=== PATIENT | male | born 1990 | race Caucasian/White ===

== ENCOUNTER 2024-03-26 21:30 | Observation (INO) | payer OTHER ==
[~2024-03-26] VITALS: Ht 170.2 cm; Wt 79.5 kg
[2024-03-27] VITALS (10 sets, daily range): BP systolic 122–158; BP diastolic 79–91; PULSE 52–96; TEMP 97.7–98.1
--- NOTE | 2024-03-27 04:01 | NUR ---
An Electronic Health Record (EHR) downtime event occurred during this patients care. For legal medical record information generated during the downtime period, please reference the patient's legal medical record. Paper or scanned documentation has been incorporated into the legal medical record which is maintained in accordance with Health Information Management (HIM) and record retention policies.
[2024-03-27] MEDS ORDERED: Albuterol/Ipratropium 3 MG-0.5 MG/3 ML Neb Soln IH PRN (04:45)
[2024-03-27] MEDS ORDERED: Polyethylene Glycol 3350 17 GM PDS PO PRN (04:45)
[2024-03-27] MEDS ORDERED: Mag/Al Hydrox/Simeth Susp 30 ML CUP PO PRN (04:45)
[2024-03-27] MEDS ORDERED: Acetaminophen 325 MG TAB PO PRN (04:45)
[2024-03-27] MEDS ORDERED: Docusate Sodium 100 MG CAP PO PRN (04:45)
[2024-03-27] MEDS ORDERED: Ondansetron 4 MG/2 ML VIAL IV PRN (04:45)
[2024-03-27] MEDS ORDERED: NS 1,000 ML IV SCH (05:00)
[2024-03-27] MEDS ORDERED: Lidocaine 4% Topical Patch TP SCH (09:00)
[2024-03-27] MEDS ORDERED: Doxycycline Monohydrate 100 MG CAP PO SCH (09:00)
[2024-03-27] MEDS ORDERED: NEXIUM 40MG40 MG PO (09:45)
[2024-03-27] MEDS ORDERED: ATARAX 25MG25 MG/TAB PO (09:46)
[2024-03-27] MEDS ORDERED: TYLENOL 325MG325 MG PO (09:47)
[2024-03-27] MEDS ORDERED: LIDODERM 5% PATC1 EA TP (09:48)
[2024-03-27] MEDS ORDERED: SYNTHROID0.05 MG/TA PO (09:48)
[2024-03-27] MEDS ORDERED: DOXYCYCLINE HY100 MG PO (09:50)
--- NOTE | 2024-03-27 09:50 | NUR ---
patient alert and oriented x4. patient reports pain to middle of chest rating it at a 6.5/10 worsening when patient takes deep breaths. patient currently NPO, fluids running per dec. patient had an episode this morning of heart rate at mid 40's while resting in bed.telemetry in place, iv fluids running per dec. patient shift assessment completed. call light within reach. bed at lowest position.
--- NOTE | 2024-03-27 11:32 | NUR ---
D: Community Development Worker stopped by room on rounds. A: Pt was resting and content. Pt has no needs right now. Pt appreciated the visit. P: Community Development Worker informed pt that if he needed anything from the candle cutter area to let his nurse know. Community Development Worker will follow up as needed.
[2024-03-27] MEDS ORDERED: Magnesium Sulfate 2 GM/50 ML IV SOLN IV ONE (12:00)
[2024-03-27] MEDS ORDERED: Regadenoson 0.08 MG/ML 5 ML SYRINGE IV SCH (13:52)
--- NOTE | 2024-03-27 14:30 | NUR ---
[facility] resting and reports pain at a 3/10 when taking deep breaths. call light within reach. bed at lowest position.
--- NOTE | 2024-03-27 16:04 | NUR ---
court worker met with patient to discuss discharge planning. Best contact is Hossein, friend, P# [phone], next of kin would be patient's , Rosalba Lozano, P# [phone], lives in [place]. PCP is at [facility], Pharmacy is [facility]. Insurance is [employer]. No issues affording medications. No DME. Patient has no DPOA-HC and not interested in completing one at this time. Patient reports to be independent with ADLS. Patient reports that he has been able to transport to and from appointments but he stated he needed help with getting transportation home at discharge. Discharge plan: Home
--- NOTE | 2024-03-27 16:05 | NUR ---
patient discharge instructions given. patient denies further questions. patient telemetry and IV discontinued. patient will be escorted out of unit once patient ride arrives. call light within reach.
[2024-03-27] MEDS ORDERED: Atorvastatin 40 MG TAB PO SCH (21:00)
== END 2024-03-27 16:00 | disposition home or self-care (01) ==
LOC: MEDICAL 21:30
PROVIDERS: ADMIT Internal Medicine
DX: R07.89 Other chest pain (principal); E03.9 Hypothyroidism, unspecified; M62.82 Rhabdomyolysis; F41.9 Anxiety disorder, unspecified; Z79.899 Other long term (current) drug therapy; Z79.890 Hormone replacement therapy
CPT/HCPCS: A9500-JZ; G0378; J1650; J2785; J3475